=== PATIENT | male | born 1955 | race American Indian/Alaskan Native ===

== ENCOUNTER 2017-02-21 03:19 | Emergency (ER) | payer BC ==
[2017-02-21] MEDS ORDERED: MOTRIN PO ONE ×2 (03:44→03:46)
--- NOTE | 2017-02-21 06:17 | Emergency Department Report ---
Chief Complaint: Skin/Abscess/Foreign Body Stated Complaint: ABSCESS - HPI History of Present Illness: 61 year old male presents to ED with left sided jaw/neck abscess x 2days. patient denies being diabetic. - ROS Review of Systems: No fever No surrounding redness/erythema - Exam Vital Signs: Vital Signs 02/21/17 02/21/17 03:43 03:47 Temperature 98.0 F Pulse Rate 75 Respiratory 20 18 Rate Blood Pressure 172/95 [Right] O2 Sat by Pulse 98 Oximetry Physical Exam: Left sided 4-5cm abscess present under left maxilla. tender to palpation MSE screening note: Focused history and physical exam performed. Due to findings the following was ordered: CT scan soft tissue neck with contrast CBC/BMP ED Disposition for MSE Condition: Stable Referrals: PRIMARY CARE, [Primary Care Provider] - 3-5 Days
[2017-02-21 06:29] LABS: Mean Corpuscular HGB Conc 36 % (32-34); Mean Corpuscular Hemoglobin 32 pg (28-32); Mean Corpuscular Volume 88 fl (84-94); Platelet Count 179 K/mm3 (140-440); Red Blood Count 4.84 M/mm3 (3.65-5.03); Red Cell Distribution Width 13.5 % (13.2-15.2)
[2017-02-21 06:31] LABS: Hematocrit 42.6 % (35.5-45.6); Hemoglobin 15.3 gm/dl (11.8-15.2)
[2017-02-21 06:42] LABS: Anion Gap 16 mmol/L; BUN/Creatinine Ratio 13; Blood Urea Nitrogen 12 mg/dL (9-20); Calcium 9.1 mg/dL (8.4-10.2); Carbon Dioxide 26 mmol/L (22-30); Chloride 103.4 mmol/L (98-107); Glucose 90 mg/dL (75-100); Potassium 4.4 mmol/L (3.6-5.0); Sodium 141 mmol/L (137-145)
[2017-02-21] MEDS ORDERED: NACL ONE (07:33)
--- NOTE | 2017-02-21 08:13 | Cat Scan Report ---
CT NECK WITH CONTRAST History: Left jaw swelling, pain, evaluate for abscess. Findings: No comparison. There is nonspecific soft tissue swelling throughout the left submental region and in particular the left submandibular gland. There is a 9 mm calcification in the expected location of the left submandibular duct. This is consistent with an obstructing left submandibular stone. There is no evidence for abscess or soft tissue gas. The right submandibular gland and parotid glands are within normal limits. A 1 cm polyp is identified the inferior right maxillary sinus. The remaining visualized sinuses and mastoid air cells are clear. Structures of the upper aerodigestive tract are normal. Normal thyroid gland. The vascular structures are patent. No bony abnormalities detected. The lung apices are clear. Impression: 9 mm left submandibular duct stone, obstructing. There is edema and soft tissue swelling surrounding the left submandibular gland but no abscess.
[2017-02-21] MEDS ORDERED: CLEOCIN 900 MG/50 mL 900 MG/50 ML BAG IV ONE (08:38)
--- NOTE | 2017-02-21 08:59 | Emergency Department Report ---
- General Chief complaint: Skin/Abscess/Foreign Body Stated complaint: ABSCESS/nodule at the left chin Source: patient Mode of arrival: Ambulatory Limitations: No Limitations - History of Present Illness Initial comments: 61 y/o M with a pmhx of HTN presents today with a nodule noted on the left aspect of his chin. Pt states that he noticed it a few days ago. Pt states that it has become more painful. 8/10 in severity. He states that he has been taking Tylenol for the pain with help. Pt denies taking any other medications at home. Pt denies any fever, chills, chest pain, SOB, headache, blurried vision. He also denies any pus or drainage from the site. No closing up for the throat, resp distress, or difficulty breathing. NKDA. ROLON complaint: other (hard nodule noted) -: days(s) (2-3 days) Tetanus Up to Date: unsure Location: face Severity: severe Severity scale (0 -10): 8 Quality: constant Consistency: constant Improves with: medication Worsens with: none Associated symptoms: denies other symptoms Treatments Prior to Arrival: other (tylenol) - Related Data Previous Rx's Medication Instructions Recorded Last Taken Type Metoprolol [Lopressor TAB] 50 mg PO BID #60 tablet 03/13/15 Unknown Rx Lisinopril [Zestril TAB] 5 mg PO QDAY #30 tablet 03/14/15 Unknown Rx Famotidine [Pepcid] 20 mg PO BID #20 tablet 03/28/16 Unknown Rx Ondansetron [Zofran TAB] 4 mg PO Q8HR PRN #6 tablet 03/28/16 Unknown Rx Clindamycin [Clindamycin CAP] 300 mg PO Q8H #21 cap 02/21/17 Unknown Rx Ibuprofen [Motrin 400 MG tab] 400 mg PO Q8H PRN #15 tablet 02/21/17 Unknown Rx Metoprolol [Lopressor TAB] 50 mg PO BID #60 tablet 02/21/17 Unknown Rx Allergies Allergy/AdvReac Type Severity Reaction Status Date / Time No Known Allergies Allergy Verified 03/12/15 03:10 Abscess Boil HPI - HPI Chief Complaint: Skin/Abscess/Foreign Body Stated Complaint: ABSCESS Duration: 2 Days Location: Head Severity: Severe History: Yes Pain, No Fever, No Purulent Drainage, No Numbness, No Foreign Body , No Previous History, No Insect Bite Home Medications: Previous Rx's Medication Instructions Recorded Last Taken Type Metoprolol [Lopressor TAB] 50 mg PO BID #60 tablet 03/13/15 Unknown Rx Lisinopril [Zestril TAB] 5 mg PO QDAY #30 tablet 03/14/15 Unknown Rx Famotidine [Pepcid] 20 mg PO BID #20 tablet 03/28/16 Unknown Rx Ondansetron [Zofran TAB] 4 mg PO Q8HR PRN #6 tablet 03/28/16 Unknown Rx Clindamycin [Clindamycin CAP] 300 mg PO Q8H #21 cap 02/21/17 Unknown Rx Ibuprofen [Motrin 400 MG tab] 400 mg PO Q8H PRN #15 tablet 02/21/17 Unknown Rx Metoprolol [Lopressor TAB] 50 mg PO BID #60 tablet 02/21/17 Unknown Rx Allergies/Adverse Reactions: Allergies Allergy/AdvReac Type Severity Reaction Status Date / Time No Known Allergies Allergy Verified 03/12/15 03:10 ED Review of Systems ROS: Stated complaint: ABSCESS Other details as noted in HPI Constitutional: denies: chills, fever Eyes: denies: eye pain, eye discharge, vision change ENT: other (4-5 cm hardned nodule noted just below the left mailla region) Respiratory: denies: cough, shortness of breath, wheezing Cardiovascular: denies: chest pain, palpitations Genitourinary: denies: urgency, dysuria Musculoskeletal: denies: back pain, joint swelling, arthralgia Skin: other (4-5 cm nodule left maxilla, pain and swelling) Neurological: denies: headache, weakness, paresthesias Psychiatric: denies: anxiety, depression ED Past Medical Hx - Past Medical History Previous Medical History?: Yes Hx Hypertension: Yes - Surgical History Past Surgical History?: No - Social History Smoking Status: Never Smoker Substance Use Type: Alcohol - Medications Home Medications: Home Medications Medication Instructions Recorded Confirmed Last Taken Type Metoprolol [Lopressor TAB] 50 mg PO BID #60 tablet 03/13/15 Unknown Rx Lisinopril [Zestril TAB] 5 mg PO QDAY #30 tablet 03/14/15 Unknown Rx Famotidine [Pepcid] 20 mg PO BID #20 tablet 03/28/16 Unknown Rx Ondansetron [Zofran TAB] 4 mg PO Q8HR PRN #6 tablet 03/28/16 Unknown Rx Clindamycin [Clindamycin CAP] 300 mg PO Q8H #21 cap 02/21/17 Unknown Rx Ibuprofen [Motrin 400 MG tab] 400 mg PO Q8H PRN #15 tablet 02/21/17 Unknown Rx Metoprolol [Lopressor TAB] 50 mg PO BID #60 tablet 02/21/17 Unknown Rx ED Physical Exam - General Limitations: No Limitations General appearance: alert, in no apparent distress - Head Head exam: Present: other (there is a 4 cm hardned nodule noted just below the left maxilla of the face, very tender to palpate, there is no evidence of pus, redness noted. No dental/throat involvement, full ROM of the neck and no muffled voice or trismus/resp distress) - Eye Eye exam: Present: normal appearance - ENT ENT exam: Present: other (there is a 4 cm hardned nodule noted just below the left maxilla of the face, very tender to palpate, there is no evidence of pus, redness noted. No dental/throat involvement, full ROM of the neck and no muffled voice or trismus/resp distress, airway was patent, no evidence of dental abscess) - Neck Neck exam: Present: full ROM - Respiratory Respiratory exam: Present: normal lung sounds bilaterally. Absent: respiratory distress - Cardiovascular Cardiovascular Exam: Present: regular rate, normal rhythm. Absent: systolic murmur, diastolic murmur, rubs, gallop - Neurological Exam Neurological exam: Present: alert, oriented X3 - Psychiatric Psychiatric exam: Present: normal affect, normal mood - Skin Skin exam: Present: other (lesionbelow the left maxilla, with swelling) ED Course Vital Signs 02/21/17 02/21/17 02/21/17 03:43 03:47 08:14 Temperature 98.0 F Pulse Rate 75 63 Respiratory 20 18 20 Rate Blood Pressure 172/95 174/96 [Right] O2 Sat by Pulse 98 98 Oximetry 02/21/17 10:22 Temperature Pulse Rate 67 Respiratory 20 Rate Blood Pressure 176/100 [Right] O2 Sat by Pulse 98 Oximetry - Reevaluation(s) Reevaluation #1: 02/21/17 10:28 BP was discussed with Dr. Adan who states he is okay with discharging him with this BP at this time. Medication choices were also ran by Dr. Adan for discharge who is in agreement with choices. With recommendation to follow-up. ED Medical Decision Making - Lab Data Result diagrams: 02/21/17 06:13 02/21/17 06:13 - Radiology Data Radiology results: report reviewed, image reviewed neck CT: Impression: 9 mm left submandibular duct stone, obstructing. There is edema and soft tissue swelling surounding the left submandibular gland but no abscess. 1 cm polyp at the right maxillary sinus. - Medical Decision Making CBC and BMP were obtained and were essentiatlly unremarkable. Neck CT was signifcant for a left submandibular stone therefore I have given clindamycin 900 mg here in the ED along ith Ibuprofen 600 mg that helped with the pain. I have discharged pt on clindamycin 300 mg TID, ibuprofen 400 mg, and restarted the pt on metoprolol as his BP was elevated here in the ED. pt was told to follow-up with ENT within 3-5 days. He was also told to see his PCP regarding his BP levels and its importance. Treatment plan was run by Dr. Adan who is in agreement to discharge pt with this treatment plan and BP. Pt was alert and oriented and in no resp distress. He also denied any headaches, chest pain, blurried vision, SOB, numbness, or tingling. He was speaking full sentences. Critical care attestation.: If time is entered above; I have spent that time in minutes in the direct care of this critically ill patient, excluding procedure time. ED Disposition Clinical Impression: Sialadenitis, Salivary stone Hypertension Qualifiers: Hypertension type: essential hypertension Qualified Code(s): I10 - Essential ( primary) hypertension Disposition: - TO HOME OR SELFCARE Is pt being admited?: No Does the pt Need Aspirin: No Condition: Stable Instructions: Sialoadenitis (ED), Hypertension (ED) Additional Instructions: Please monitor your BP while on the motorin as it may increase your BP, please stop this medication and take tylenol if your BP continues to stay elevated. Please follow-up with PCP within 3-5 days for continued evaluation of your BP. Please follow-up within ENT in 2-3 days. I have restarted you on your BP medication at this time due to the elevation please take one twice a day follow- up with PCP in 3-5 days, exercise and diet and limit salt intake. This is very important as uncontrolled BP can cause strokes and heart attacks. Please apply warm compresses to the site and sour candy. Please take probiotics with this antibiotic. Please return to the ER immediately with any continued or worsening symptoms. Recommended follow-up here in 2 days. Prescriptions: Clindamycin [Clindamycin CAP] 300 mg PO Q8H #21 cap Ibuprofen [Motrin 400 MG tab] 400 mg PO Q8H PRN #15 tablet PRN Reason: pain and swelling Metoprolol [Lopressor TAB] 50 mg PO BID #60 tablet Referrals: PRIMARY CAREMD [Primary Care Provider] - 3-5 Days CHRIS LUNA MD [Staff Physician] - 3-5 Days [facility] [Outside] - 3-5 Days [facility] [Outside] - 3-5 Days Forms: Work/School Release Form(ED)
[2017-02-21 10:24] VITALS: BP 176/100
== END 2017-02-21 10:55 | disposition home or self-care (01) ==
LOC: ED 03:19
DX: K11.20 Sialoadenitis, unspecified (principal); K11.5 Sialolithiasis; I10 Essential (primary) hypertension
CPT/HCPCS: 36415; 70491; 80048; 85027; 96365; 99284; Q9967

== ENCOUNTER 2020-10-12 09:04 | Emergency (ER) | payer BC ==
--- NOTE | 2020-10-12 09:32 | Event Note ---
ED Screening Note ED Screening Note: SEVERE SKIN ITCHING NO KNOWN EXPOSURE NO ONE IN HOME WITH SAME NO RASH NO INSECT BITE NO EXPOSURE TO ALLERGEN BENADRYL NOT HELPING This initial assessment/diagnostic orders/clinical plan/treatment(s) is/are subject to change based on patients health status, clinical progression and re- assessment by fellow clinical providers in the ED. Further treatment and workup at subsequent clinical providers discretion. Patient/guardian urged not to elope from the ED as their condition may be serious if not clinically assessed and managed. Initial orders include: RO INC LFT
[2020-10-12 09:40] VITALS: BP 155/88
[2020-10-12 10:39] LABS: Hematocrit 46.3 % (35.5-45.6); Hemoglobin 16.3 gm/dl (11.8-15.2); Mean Corpuscular HGB Conc 35 % (32-34); Mean Corpuscular Volume 88 fl (84-94); Platelet Count 198 K/mm3 (140-440); Red Blood Count 5.25 M/mm3 (3.65-5.03); Red Cell Distribution Width 13.7 % (13.2-15.2)
[2020-10-12 10:41] LABS: Alanine Aminotransferase 14 units/L (7-56); Albumin 4.6 g/dL (3.9-5); BUN/Creatinine Ratio 21; Blood Urea Nitrogen 19 mg/dL (9-20); Calcium 9.8 mg/dL (8.4-10.2); Hemolysis Index 9
--- NOTE | 2020-10-12 10:50 | Emergency Department Report ---
ED Rash HPI - HPI Chief Complaint: Skin Rash Stated Complaint: ITCHING SKIN Time Seen by Provider: 10/12/20 09:32 Location: Other Suspected Cause: Other Rash Symptoms: Yes Itching, No Facial Swelling, No Tongue/Oral Swelling, No Breathing Difficulties, No Choking Sensation, No Wheezing/Dyspnea, No Peeling, No Blistering, No Fever, No Lightheaded, No Malaise, No Myalgias Severity: mild Other History: 64 YO COMES IN WITH SEVERE ITCHING FOR SEVERAL DAYS. NO EXPOSURE TO KNOWN ALLERGEN. NO NEW PRODUCT. NO EXPOSURE TO SCABIES ETC. NO ONE IN HOME W THE SAME. NO RASH. NO FEVER OR CHILLS. NO SYSTEMIC SYMPTOMS. NON ILL APPEARING ON EXAM. ED Review of Systems ROS: Stated complaint: ITCHING SKIN Other details as noted in HPI Comment: All other systems reviewed and negative ED Past Medical Hx - Past Medical History Hx Hypertension: Yes - Surgical History Past Surgical History?: No - Family History Family history: no significant - Social History Smoking Status: Never Smoker Substance Use Type: None - Medications Home Medications: Home Medications Medication Instructions Recorded Confirmed Last Taken Type Metoprolol [Lopressor TAB] 50 mg PO BID #60 tablet 03/13/15 Unknown Rx lisinopriL [Zestril TAB] 5 mg PO QDAY #30 tablet 03/14/15 Unknown Rx Famotidine [Pepcid] 20 mg PO BID #20 tablet 03/28/16 Unknown Rx Ondansetron [Zofran TAB] 4 mg PO Q8HR PRN #6 tablet 03/28/16 Unknown Rx Clindamycin [Clindamycin CAP] 300 mg PO Q8H #21 cap 02/21/17 Unknown Rx Ibuprofen [Motrin 400 MG tab] 400 mg PO Q8H PRN #15 tablet 02/21/17 Unknown Rx Metoprolol [Lopressor TAB] 50 mg PO BID #60 tablet 02/21/17 Unknown Rx predniSONE [Deltasone] 20 mg PO DAILY #5 tablet 10/12/20 Unknown Rx Rash Exam - Exam General: Vital signs noted. No distress. Alert and acting appropriately. HEENT: No Periorbital Edema, No Conjuctival Injection, No Chemosis, No Perioral Edema, No Tongue Edema, No Uvular Edema, No Compromised Airway, No Drooling Lungs: Yes Good Air Exchange (Normal Breath Sounds), No Wheezes, No Ronchi, No Stridor, No Cough, No Labored Respirations, No Retractions, No Use of Accessory Muscles, No Other Abnormal Lung Sounds Heart: Yes Regular, No Murmur Other: Positive: Abdomen Normal, Neurologic Normal, Musculoskeletal Normal ED Course Vital Signs 10/12/20 09:38 Temperature 98.5 F Pulse Rate 77 Respiratory 18 Rate Blood Pressure 155/88 [Right] O2 Sat by Pulse 96 Oximetry ED Medical Decision Making - Lab Data Result diagrams: 10/12/20 10:01 10/12/20 10:01 - Medical Decision Making Lab Results 10/12/20 10/12/20 Range/Units 10:01 10:01 WBC 5.3 (4.5-11.0) K/mm3 RBC 5.25 H (3.65-5.03) M/mm3 Hgb 16.3 H (11.8-15.2) gm/dl Hct 46.3 H (35.5-45.6) % MCV 88 (84-94) fl MCH 31 (28-32) pg MCHC 35 H (32-34) % RDW 13.7 (13.2-15.2) % Plt Count 198 (140-440) K/mm3 Sodium 135 L (137-145) mmol/L Potassium 3.9 (3.6-5.0) mmol/L Chloride 97.6 L (98-107) mmol/L Carbon Dioxide 28 (22-30) mmol/L Anion Gap 13 mmol/L BUN 19 (9-20) mg/dL Creatinine 0.9 (0.8-1.3) mg/dL Estimated GFR > 60 ml/min BUN/Creatinine Ratio 21 % Glucose 103 H (75-100) mg/dL Calcium 9.8 (8.4-10.2) mg/dL Total Bilirubin 0.40 (0.1-1.2) mg/dL AST 16 (5-40) units/L ALT 14 (7-56) units/L Alkaline Phosphatase 76 (35-129) units/L Total Protein 8.0 (6.3-8.2) g/dL Albumin 4.6 (3.9-5) g/dL Albumin/Globulin Ratio 1.4 % Vital Signs 10/12/20 09:38 Temperature 98.5 F Pulse Rate 77 Respiratory 18 Rate Blood Pressure 155/88 [Right] O2 Sat by Pulse 96 Oximetry LABS NOTED LFT N DECADRON IM DC HOME WITH DC PLAN OF CARE AND PCP FOLLOW UP PT VERBALIZES UNDERSTANDING OF PLAN OF CARE. - Differential Diagnosis RO INC LFT CAUSING PRURITIS/ ALLERGY/ SCABIES/BEDBUGS/ PSYCH RELATED Critical care attestation.: If time is entered above; I have spent that time in minutes in the direct care of this critically ill patient, excluding procedure time. ED Disposition Clinical Impression: Pruritus Disposition: DC-01 TO HOME OR SELFCARE Is pt being admited?: No Does the pt Need Aspirin: No Condition: Stable Instructions: Pruritus Additional Instructions: MED ORDERED TODAY FOLLOW UP WITH PCP REFERRAL BELOW Prescriptions: predniSONE [Deltasone] 20 mg PO DAILY #5 tablet Referrals: WOLFGANG FIGUEREDO MD [Staff Physician] - 3-5 Days Time of Disposition: 10:53
[2020-10-12] MEDS ORDERED: dexAMETHasone 4 MG/ML VIAL IM ONE (10:56)
== END 2020-10-12 11:45 | disposition home or self-care (01) ==
LOC: ED 09:04
DX: L29.9 Pruritus, unspecified (principal); I10 Essential (primary) hypertension; Z79.1 Long term (current) use of non-steroidal anti-inflammatories (NSAID); Z79.899 Other long term (current) drug therapy
CPT/HCPCS: 36415; 80053; 85027; 96372; 99283; J1100